=== PATIENT | male | born 1970 | race Caucasian/White ===

== ENCOUNTER → 2023-01-09 | Outpatient (CLI) | payer MEDICAID, OTHER ==
[~2023-01-09] MED LIST: ALBU8.5H INH; B-12100021 PO; B-121CAP PO; IRON27TA2 PO; VITA500054 PO; ZINC100T3 PO; ZINC220CA PO
== END ==
LOC: M RAD 12:21
PROVIDERS: ATTEND Family Medicine
DX: R06.02 Shortness of breath (principal)

== ENCOUNTER 2023-01-13 13:29 | Inpatient (IN) | payer MEDICAID, OTHER ==
[2023-01-13] VITALS (9 sets, daily range): BP systolic 117–180; BP diastolic 65–90
[~2023-01-13] VITALS: Ht 182.9 cm; Wt 139.2 kg
[2023-01-13] MEDS ORDERED: B-12100021 PO (13:37)
[2023-01-13] MEDS ORDERED: IRON27TA2 PO (13:37)
[2023-01-13 15:31] LABS: BASO # 0.1 10^3/uL (0.0-0.2); BASO % 0.6 % (0.0-1.0); EOS # 0.1 10^3/uL (0.0-0.5); EOS % 0.6 % (0.0-3.0); HEMATOCRIT 23.9 % (42.0-52.0); LYMPH # 1.6 10^3/uL (1.5-5.0); LYMPH % 14.6 % (24.0-44.0); MEAN CORPUSCULAR HEMOGLOBIN 18.1 pg (27.0-33.0); MEAN CORPUSCULAR HGB CONC 26.8 g/dl (32.0-36.5); MEAN CORPUSCULAR VOLUME 67.5 fl (80.0-96.0); MONO # 0.6 10^3/uL (0.0-0.8); MONO % 5.4 % (2.0-8.0); NEUTROPHILS # 8.8 10^3/uL (1.5-8.5); NEUTROPHILS % 78.4 % (36.0-66.0); PLATELET COUNT, AUTOMATED 452 10^3/uL (150-450); RED BLOOD COUNT 3.54 10^6/uL (4.30-6.10); WHITE BLOOD COUNT 11.2 10^3/uL (4.0-10.0)
[2023-01-13 15:37] LABS: HEMOGLOBIN 6.4 g/dl (13.5-17.5)
[2023-01-13 15:46] LABS: INR 1.14; PROTHROMBIN TIME 14.8 SECONDS (12.5-14.5)
[2023-01-13 15:53] LABS: PARTIAL THROMBOPLASTIN TIME 31.2 SECONDS (24.8-34.2)
[2023-01-13 16:06] LABS: IRON (FE) 41 UG/DL (65-175); PERCENT SATURATION 14.7 % (19.7-50.0); TOTAL IRON BINDING CAPACITY 278 UG/DL (250-425)
[2023-01-13 16:07] LABS: FERRITIN 17.8 NG/ML (10.5-307.3)
[2023-01-13 16:11] LABS: ALBUMIN 2.6 G/DL (3.2-5.2); ALKALINE PHOSPHATASE 85 U/L (46-116); ALT/SGPT 13 U/L (7.0-40); AST/SGOT 55 U/L (<34); BILIRUBIN,DIRECT 0.2 MG/DL (<0.4); BILIRUBIN,TOTAL 0.4 MG/DL (0.3-1.2); BLOOD UREA NITROGEN 10 MG/DL (9-23); CARBON DIOXIDE LEVEL 24 MMOL/L (20-31); CHLORIDE LEVEL 109 MMOL/L (98-107); CK-MB VALUE MASS < 1.0 NG/ML (<3.6); CPK CREATINE PHOSPHOKINASE 61 U/L (46-171); CREATININE FOR GFR 0.61 MG/DL (0.70-1.30); FOLATE > 24.00 NG/ML (>5.4); GLOMERULAR FILTRATION RATE > 60.0 (>56); GLUCOSE, FASTING 81 MG/DL (60-100); LIPASE 24 U/L (12-53); MB/CK RELATIVE INDEX 1.63 (< OR =4); POTASSIUM SERUM 5.5 MMOL/L (3.5-5.1); SODIUM LEVEL 140 MMOL/L (136-145); TOTAL PROTEIN 6.6 G/DL (5.7-8.2); VITAMIN B12 LEVEL > 2000 PG/ML (211-911)
[2023-01-13] MEDS ORDERED: ISOVUE-370 76% 100ML VIAL As Ordered ONE (16:20)
[2023-01-13] MEDS ORDERED: GOLYTELY SOLN 4000 ML BTL PO ONE (19:50)
[2023-01-13] MEDS ORDERED: ALBU8.5H INH (20:07)
[2023-01-13] MEDS ORDERED: B-121CAP PO (20:07)
[2023-01-13] MEDS ORDERED: ZINC220CA PO (20:07)
[2023-01-13] MEDS ORDERED: VITA500054 PO (20:07)
[2023-01-13] MEDS ORDERED: ZINC100T3 PO (20:07)
[2023-01-13] MEDS ORDERED: HOME MED LIST COMPLETE! XX SCH (20:10)
[2023-01-13] MEDS ORDERED: ALBUTEROL 90 MCG/ACT 8GM HFA INHALER INH PRN (23:55)
[2023-01-13] MEDS ORDERED: ACETAMINOPHEN TAB 650MG DOSE (2X325MG) PO PRN (23:55)
[2023-01-14] VITALS (9 sets, daily range): BP systolic 111–130; BP diastolic 58–76
[2023-01-14] MEDS ORDERED: SODIUM CHLORIDE 0.9% 1000ML IV ONE (00:50)
[2023-01-14 01:35] LABS: HEMATOCRIT 27.6 % (42.0-52.0); HEMOGLOBIN 7.7 g/dl (13.5-17.5)
[2023-01-14] MEDS: LR 1,000 ML IV SCH ×3 (02:19→16:50)
[2023-01-14 06:58] LABS: HEMATOCRIT 27.4 % (42.0-52.0); HEMOGLOBIN 7.7 g/dl (13.5-17.5); MEAN CORPUSCULAR HEMOGLOBIN 20.2 pg (27.0-33.0); MEAN CORPUSCULAR HGB CONC 28.1 g/dl (32.0-36.5); MEAN CORPUSCULAR VOLUME 71.7 fl (80.0-96.0); PLATELET COUNT, AUTOMATED 409 10^3/uL (150-450); RED BLOOD COUNT 3.82 10^6/uL (4.30-6.10); WHITE BLOOD COUNT 10.8 10^3/uL (4.0-10.0)
[2023-01-14 07:20] LABS: ALBUMIN 2.3 G/DL (3.2-5.2); ALKALINE PHOSPHATASE 86 U/L (46-116); ALT/SGPT < 9 U/L (7.0-40); AST/SGOT 18 U/L (<34); BILIRUBIN,TOTAL 1.8 MG/DL (0.3-1.2); BLOOD UREA NITROGEN 7 MG/DL (9-23); CALCIUM LEVEL 7.7 MG/DL (8.5-10.1); CARBON DIOXIDE LEVEL 23 MMOL/L (20-31); CHLORIDE LEVEL 109 MMOL/L (98-107); CREATININE FOR GFR 0.57 MG/DL (0.70-1.30); GLOMERULAR FILTRATION RATE > 60.0 (>56); GLUCOSE, FASTING 79 MG/DL (60-100); MAGNESIUM LEVEL 1.9 MG/DL (1.8-2.4); POTASSIUM SERUM 4.3 MMOL/L (3.5-5.1); SODIUM LEVEL 139 MMOL/L (136-145); TOTAL PROTEIN 5.8 G/DL (5.7-8.2)
[2023-01-14] MEDS ORDERED: propofoL 200 MG/20 ML VIAL As Ordered ONE ×3 (10:17→11:31)
[2023-01-14] MEDS ORDERED: LIDOCAINE 2% 100MG/5ML SDV (FOR ANES.) As Ordered ONE (10:17)
[2023-01-14] MEDS ORDERED: GLYCOPYRROLATE INJ 0.2 MG/ML 2 ML VIAL As Ordered ONE (11:38)
[2023-01-14] MEDS ORDERED: ONDANSETRON 4MG 2ML VIAL As Ordered ONE (11:54)
[2023-01-14] MEDS ORDERED: HEPARIN SOD (PORCINE) 5000UNITS/ML 1ML VIAL/SYRINGE IV PRN (12:40)
[2023-01-14] MEDS ORDERED: HEPARIN SOD (PORCINE) 5000UNITS/ML 1ML VIAL/SYRINGE IV ONE (13:00)
[2023-01-14 13:29] LABS: HEMATOCRIT 28.2 % (42.0-52.0); HEMOGLOBIN 8.1 g/dl (13.5-17.5)
[2023-01-14] MEDS: HEPARIN DRIP 25,000 UNITS in IV 1 EA IV SCH ×2 (15:52→23:04)
[2023-01-14] MEDS ORDERED: ENOXAPARIN 40MG/0.4ML SYRINGE (J1650 PER 10MG) SC SCH (21:00)
[2023-01-14] MEDS: PANTOPRAZOLE 40MG TAB (PROTONIX) PO SCH (22:02)
[2023-01-14 22:06] LABS: HEMATOCRIT 28.8 % (42.0-52.0); HEMOGLOBIN 8.2 g/dl (13.5-17.5)
[2023-01-15] MEDS: LR 1,000 ML IV SCH ×4 (00:50→23:50)
[2023-01-15 05:55] LABS: HEMATOCRIT 26.8 % (42.0-52.0); HEMOGLOBIN 7.6 g/dl (13.5-17.5); MEAN CORPUSCULAR HEMOGLOBIN 20.5 pg (27.0-33.0); MEAN CORPUSCULAR HGB CONC 28.4 g/dl (32.0-36.5); MEAN CORPUSCULAR VOLUME 72.2 fl (80.0-96.0); PLATELET COUNT, AUTOMATED 394 10^3/uL (150-450); RED BLOOD COUNT 3.71 10^6/uL (4.30-6.10)
[2023-01-15 06:00] VITALS: BP 116/64
[2023-01-15 06:20] LABS: BLOOD UREA NITROGEN 7 MG/DL (9-23); CALCIUM LEVEL 7.7 MG/DL (8.5-10.1); CARBON DIOXIDE LEVEL 24 MMOL/L (20-31); CHLORIDE LEVEL 109 MMOL/L (98-107); CREATININE FOR GFR 0.68 MG/DL (0.70-1.30); GLOMERULAR FILTRATION RATE > 60.0 (>56); GLUCOSE, FASTING 78 MG/DL (60-100); MAGNESIUM LEVEL 1.9 MG/DL (1.8-2.4); POTASSIUM SERUM 4.1 MMOL/L (3.5-5.1); SODIUM LEVEL 140 MMOL/L (136-145)
[2023-01-15] MEDS: HEPARIN DRIP 25,000 UNITS in IV 1 EA IV SCH (07:00)
[2023-01-15] MEDS: PANTOPRAZOLE 40MG TAB (PROTONIX) PO SCH ×2 (08:59→20:06)
[2023-01-15 09:00] VITALS: BP 116/65
[2023-01-15 11:46] LABS: HEMATOCRIT 29.5 % (42.0-52.0); HEMOGLOBIN 8.3 g/dl (13.5-17.5)
[2023-01-15] MEDS: APIXABAN 5 MG TAB (ELIQUIS) PO SCH ×2 (13:54→20:07)
[2023-01-15 14:00] VITALS: BP 120/66
[2023-01-15 14:04] LABS: IRON (FE) 13 UG/DL (65-175); PERCENT SATURATION 5.7 % (19.7-50.0); TOTAL IRON BINDING CAPACITY 230 UG/DL (250-425)
[2023-01-15 14:06] LABS: FERRITIN 30.2 NG/ML (10.5-307.3)
[2023-01-15 18:40] LABS: HEMATOCRIT 32.1 % (42.0-52.0); HEMOGLOBIN 9.1 g/dl (13.5-17.5)
[2023-01-15 20:00] VITALS: BP 124/71
[2023-01-15 23:15] LABS: HEMATOCRIT 29.7 % (42.0-52.0); HEMOGLOBIN 8.2 g/dl (13.5-17.5)
[2023-01-16 05:21] LABS: HEMATOCRIT 27.2 % (42.0-52.0); HEMOGLOBIN 7.8 g/dl (13.5-17.5); MEAN CORPUSCULAR HEMOGLOBIN 20.9 pg (27.0-33.0); MEAN CORPUSCULAR HGB CONC 28.7 g/dl (32.0-36.5); MEAN CORPUSCULAR VOLUME 72.9 fl (80.0-96.0); PLATELET COUNT, AUTOMATED 415 10^3/uL (150-450); RED BLOOD COUNT 3.73 10^6/uL (4.30-6.10); WHITE BLOOD COUNT 10.8 10^3/uL (4.0-10.0)
[2023-01-16 05:39] VITALS: BP 122/70
[2023-01-16] MEDS: PANTOPRAZOLE 40MG TAB (PROTONIX) PO SCH (08:12)
[2023-01-16] MEDS: APIXABAN 5 MG TAB (ELIQUIS) PO SCH (08:12)
[2023-01-16] MEDS: LR 1,000 ML IV SCH (08:22)
[2023-01-16] MEDS ORDERED: FERR325T3 PO ×2 (10:23→11:38)
[2023-01-16] MEDS ORDERED: ELIQ5TAB PO ×2 (10:23→11:38)
[2023-01-16] MEDS ORDERED: FERRIC CARBOXYMALTOSE INJ 750 MG, VIAL MATE ADAPTER 1 EACH in NS 250 ML IV ONE (12:00)
== END 2023-01-16 14:20 | disposition home or self-care (01) | DRG 663 ==
LOC: M ED 13:29 → M ED INP 21:39 → M MSPAV 23:07
PROVIDERS: ADMIT Internal Medicine; ATTEND Internal Medicine
PROC: 30233N1 Transfusion of Nonautologous Red Blood Cells into Peripheral Vein, Percutaneous Approach (ICD-10-PCS; principal; 2023-01-13)
PROC: 0DBL8ZX Excision of Transverse Colon, Via Natural or Artificial Opening Endoscopic, Diagnostic (ICD-10-PCS; 2023-01-14)
PROC: 0DBK8ZX Excision of Ascending Colon, Via Natural or Artificial Opening Endoscopic, Diagnostic (ICD-10-PCS; 2023-01-14)
DX: D62 Acute posthemorrhagic anemia (principal); K56.690 Other partial intestinal obstruction; I82.402 Acute embolism and thrombosis of unspecified deep veins of left lower extremity; C78.7 Secondary malignant neoplasm of liver and intrahepatic bile duct; C18.2 Malignant neoplasm of ascending colon; Z66 Do not resuscitate; Z79.899 Other long term (current) drug therapy; Z20.822 Contact with and (suspected) exposure to COVID-19

== ENCOUNTER 2023-01-21 08:53 | Inpatient (IN) | payer OTHER ==
[~2023-01-21] VITALS: Ht 182.9 cm; Wt 135.1 kg
[~2023-01-21 08:53] MED LIST changes: +ELIQ5TAB PO; +FERR325T3 PO
[2023-01-21] MEDS ORDERED: NS 1,000 ML IV ONE (09:00)
[2023-01-21 09:23] LABS: HEMATOCRIT 34.2 % (42.0-52.0); HEMOGLOBIN 9.2 g/dl (13.5-17.5); MEAN CORPUSCULAR HEMOGLOBIN 21.8 pg (27.0-33.0); MEAN CORPUSCULAR HGB CONC 26.9 g/dl (32.0-36.5); PLATELET COUNT, AUTOMATED 566 10^3/uL (150-450); RED BLOOD COUNT 4.22 10^6/uL (4.30-6.10); WHITE BLOOD COUNT 8.5 10^3/uL (4.0-10.0)
[2023-01-21 09:30] LABS: ABG BASE EXCESS -7.3 (-2.0-2.0); ABG HCO3 16.1 MEQ/L (22.0-26.0); ABG O2 SATURATION 95.9 % (95.0-99.0); ABG PARTIAL PRESSURE O2 80.1 mmHg (75.0-100.0); ABG STANDARD HCO3 18.4 MEQ/L (22.0-26.0); ABG TOTAL CO2 16.9 MEQ/L (22.0-29.0)
[2023-01-21 09:52] LABS: ATYPICAL LYMPH 1 % (0-5); HYPOCHROMASIA 2+; LYMPHOCYTES 15 % (16-44); METAMYELOCYTES 4 % (0-0); MONOCYTES 8 % (0-5); NEUTROPHILS 30 % (28-66)
[2023-01-21 09:53] LABS: ANISOCYTOSIS 4+; PLATELET ESTIMATE INCREASED (NORMAL)
[2023-01-21 09:54] LABS: INR 1.76; PROTHROMBIN TIME 20.8 SECONDS (12.5-14.5)
[2023-01-21 09:55] LABS: PARTIAL THROMBOPLASTIN TIME 32.6 SECONDS (24.8-34.2); RSV AMPLIFICATION NEGATIVE (NEGATIVE)
[2023-01-21] MEDS ORDERED: NS IV ONE (09:55)
[2023-01-21] MEDS ORDERED: PIPERACILLIN/TAZOBACTAM SOD 4.5 GM in D5W MINI-BAG PLUS 50 ML IV ONE (09:55)
[2023-01-21 10:40] VITALS: BP 99/54
[2023-01-21 10:42] LABS: CK-MB VALUE MASS < 1.0 NG/ML (<3.6)
[2023-01-21 10:43] LABS: LIPASE 16 U/L (12-53)
[2023-01-21 10:45] LABS: AMYLASE 182 U/L (30-118)
[2023-01-21 10:46] LABS: ALBUMIN 1.8 G/DL (3.2-5.2); ALKALINE PHOSPHATASE 59 U/L (46-116); ALT/SGPT < 9 U/L (7.0-40); AST/SGOT 45 U/L (<34); BILIRUBIN,DIRECT 0.3 MG/DL (<0.4); BILIRUBIN,TOTAL 0.6 MG/DL (0.3-1.2); BLOOD UREA NITROGEN 27 MG/DL (9-23); CALCIUM LEVEL 7.9 MG/DL (8.5-10.1); CARBON DIOXIDE LEVEL 18 MMOL/L (20-31); CHLORIDE LEVEL 111 MMOL/L (98-107); CREATININE FOR GFR 1.88 MG/DL (0.70-1.30); GLOMERULAR FILTRATION RATE 40.2 (>56); GLUCOSE, FASTING 99 MG/DL (60-100); POTASSIUM SERUM 4.6 MMOL/L (3.5-5.1); SODIUM LEVEL 143 MMOL/L (136-145); THYROXINE (T4) 7.2 UG/DL (4.5-10.9)
[2023-01-21 10:47] LABS: THYROID STIMULATING HORMONE 16.794 uIU/ML (0.55-4.78)
[2023-01-21 10:48] LABS: CPK CREATINE PHOSPHOKINASE 49 U/L (46-171); MB/CK RELATIVE INDEX 2.04 (< OR =4)
[2023-01-21 10:58] VITALS: BP 93/52
[2023-01-21] MEDS ORDERED: MORPHINE 2 MG/ML 1ML VIAL IV PRN ×2 (11:00→13:30)
[2023-01-21] MEDS ORDERED: FERR325T3 PO (11:45)
[2023-01-21] MEDS ORDERED: ELIQ5TAB PO (11:45)
[2023-01-21] MEDS ORDERED: HOME MED LIST COMPLETE! XX SCH (11:45)
[2023-01-21 12:00] VITALS: BP 102/54
[2023-01-21] MEDS ORDERED: ONDANSETRON 4MG 2ML VIAL IV PRN (13:30)
[2023-01-21] MEDS: LORazepam 2 MG/ML 1ML VIAL IV PRN ×2 (13:52→16:58)
[2023-01-21] MEDS: MORPHINE 2 MG/ML 1ML VIAL IV PRN ×2 (15:39→17:53)
[2023-01-21] MEDS ORDERED: MORPHINE SULF IN 0.9% NACL 100 MG in IV 1 EA IV SCH ×2 (21:00)
== END 2023-01-22 00:25 | disposition expired | DRG 862 ==
LOC: EDBD 08:53 → M ED 08:53 → M ED INP 13:27 → ENRESERV 14:10 → M MS5PR 15:05
PROVIDERS: ADMIT Internal Medicine Nephrology; ATTEND Internal Medicine Nephrology
PROC: 30233N1 Transfusion of Nonautologous Red Blood Cells into Peripheral Vein, Percutaneous Approach (ICD-10-PCS; principal; 2023-01-21)
DX: Z51.5 Encounter for palliative care (principal); R65.20 Severe sepsis without septic shock; K63.1 Perforation of intestine (nontraumatic); C78.7 Secondary malignant neoplasm of liver and intrahepatic bile duct; N17.9 Acute kidney failure, unspecified; E87.20 Acidosis, unspecified; Z68.41 Body mass index [BMI] 40.0-44.9, adult; A41.9 Sepsis, unspecified organism; I82.402 Acute embolism and thrombosis of unspecified deep veins of left lower extremity; E66.01 Morbid (severe) obesity due to excess calories; C18.2 Malignant neoplasm of ascending colon; I89.0 Lymphedema, not elsewhere classified; Z66 Do not resuscitate; Z86.718 Personal history of other venous thrombosis and embolism; Z79.01 Long term (current) use of anticoagulants; Z79.899 Other long term (current) drug therapy; Z87.891 Personal history of nicotine dependence; Z20.822 Contact with and (suspected) exposure to COVID-19